=== PATIENT | male | born 1965 | race Caucasian/White ===

== ENCOUNTER 2020-08-15 07:25 | Outpatient (REF) | payer OTHER, SELFPAY | END 2020-08-15 07:26 | disposition home or self-care (01) | LOC: HO.LAB 07:25 | PROVIDERS: Visit Provider Internal Medicine | DX: Z20.828 Contact with and (suspected) exposure to other viral communicable diseases (principal) | CPT/HCPCS: C9803; U0003 ==

== ENCOUNTER 2020-09-02 07:19 | Outpatient (REF) | payer OTHER, SELFPAY | END 2020-09-02 07:20 | disposition home or self-care (01) | LOC: HO.LAB 07:19 | PROVIDERS: Visit Provider Internal Medicine | DX: Z20.828 Contact with and (suspected) exposure to other viral communicable diseases (principal) | CPT/HCPCS: C9803; U0003 ==

== ENCOUNTER 2020-09-20 08:07 | Outpatient (REF) | payer OTHER, SELFPAY | END 2020-09-20 08:08 | disposition home or self-care (01) | LOC: HO.LAB 08:07 | PROVIDERS: PCP Physician Assistant Medical; Visit Provider Internal Medicine | DX: Z20.828 Contact with and (suspected) exposure to other viral communicable diseases (principal) | CPT/HCPCS: C9803; U0003 ==

== ENCOUNTER 2020-12-16 07:33 | Outpatient (REF) | payer OTHER, SELFPAY | END 2020-12-16 07:34 | disposition home or self-care (01) | LOC: HO.LAB 07:33 | PROVIDERS: Visit Provider Internal Medicine | DX: Z20.822 Contact with and (suspected) exposure to COVID-19 (principal) | CPT/HCPCS: 36415; C9803; U0003; U0005 ==

== ENCOUNTER 2021-09-24 07:19 | Outpatient (REF) | payer OTHER, SELFPAY | END 2021-09-24 07:20 | disposition home or self-care (01) | LOC: HO.HMGCLDS 07:19 | PROVIDERS: Visit Provider Internal Medicine | DX: Z20.822 Contact with and (suspected) exposure to COVID-19 (principal) | CPT/HCPCS: C9803; U0003; U0005 ==